=== PATIENT | female | born 1990 | race American Indian/Alaskan Native ===

== ENCOUNTER 2017-11-13 10:44 | Emergency (ER) | payer MEDICAID ==
[2017-11-13] MEDS ORDERED: TYLENOL #3 PO ONE (13:17)
[2017-11-13] MEDS ORDERED: GUAIFENESIN DM SYRUP PO ONE (13:17)
[2017-11-13] MEDS ORDERED: ANTIVERT PO ONE (13:17)
--- NOTE | 2017-11-13 13:20 | Emergency Department Report ---
Chief Complaint: Dizziness Stated Complaint: FLU LIKE SYMPTOMS Time Seen by Provider: 11/13/17 12:56 - HPI History of Present Illness: The patient is a 27-year-old female who presents for evaluation of cough and dizziness. The patient reports 4 days of nonproductive cough, ear pain, myalgias, and severe recurrent dizziness. She states that he feels like the room is spinning. - Exam Vital Signs: Vital Signs 11/13/17 10:55 Temperature 98.5 F Pulse Rate 78 Respiratory 16 Rate Blood Pressure 109/54 O2 Sat by Pulse 100 Oximetry MSE screening note: Focused history and physical exam performed. Due to findings the following was ordered: Labs and imaging and medications are ordered for the patient's symptoms. ED Disposition for MSE Condition: Stable Referrals: PRIMARY CARE, [Primary Care Provider] - 3-5 Days
[2017-11-13] MEDS ORDERED: TESSALON PERLES PO ONE (13:43)
[2017-11-13] MEDS ORDERED: MOTRIN PO ONE (13:43)
[2017-11-13] MEDS ORDERED: ZOFRAN ODT PO ONE (14:21)
[2017-11-13 14:26] LABS: Basophils % (Auto) 0.6 % (0.0-1.8); Eosinophils # (Auto) 0.1 K/mm3 (0.0-0.4); Eosinophils % (Auto) 2.3 % (0.0-4.3); Hematocrit 39.4 % (30.3-42.9); Hemoglobin 13.3 gm/dl (10.1-14.3); Lymphocytes # (Auto) 1.1 K/mm3 (1.2-5.4); Lymphocytes % (Auto) 36.5 % (13.4-35.0); Mean Corpuscular HGB Conc 34 % (30-34); Mean Corpuscular Hemoglobin 30 pg (28-32); Mean Corpuscular Volume 88 fl (79-97); Monocytes # (Auto) 0.4 K/mm3 (0.0-0.8); Platelet Count 182 K/mm3 (140-440); Red Blood Count 4.48 M/mm3 (3.65-5.03); Red Cell Distribution Width 13.1 % (13.2-15.2)
--- NOTE | 2017-11-13 14:27 | Emergency Department Report ---
ED ENT HPI - General Chief complaint: Dizziness Stated complaint: FLU LIKE SYMPTOMS Time Seen by Provider: 11/13/17 12:56 Source: patient Mode of arrival: Ambulatory Limitations: No Limitations - History of Present Illness Initial comments: This is a 27-year-old female nontoxic, well nourished in appearance, no acute signs of distress presents to the ED with c/o of cough, left earache, and dizziness x2 days. Patient stated 4 days ago she developed a nonproductive cough , earache, and myalgias. Patient denies following-up with a provider. Patient denies decreased hearing, hearing loss, mastoid tenderness, or tragus pain. Patient denies any chest pain, shortness of breathe, fever, chills, headache, stiff neck, blurry vision, back pain, numbness or tingling. Patient denies any allergies or PMH. MD complaint: ear pain -: days(s) (4) Location: L ear Severity: mild Severity scale (0 -10): 8 Quality: aching Consistency: constant Improves with: none Worsens with: none Associated Symptoms: tinnitus. denies: fever, cough, gum swelling, toothache, pain with swallowing, sore throat, hearing loss, discharge from ear, rhinorrhea - Related Data Previous Rx's Medication Instructions Recorded Last Taken Type Ibuprofen [Motrin] 600 mg PO Q8H PRN #30 tablet 11/26/14 Unknown Rx Albuterol Sulfate [Proair 90 mcg IH Q4HR PRN #2 aer.pow.ba 11/26/15 Unknown Rx Respiclick] Azithromycin [Zithromax] 250 mg PO QDAY #6 tablet 11/26/15 Unknown Rx Fluticasone [Flonase] 1 spray NS QDAY #1 bottle 11/26/15 Unknown Rx Ibuprofen [Motrin] 600 mg PO Q8H PRN #30 tablet 11/26/15 Unknown Rx Albuterol Sulfate [Proair 90 mcg IH PRN PRN #1 aer.pow.ba 08/04/17 Unknown Rx Respiclick] Azithromycin [Zithromax Z-ANA] 250 mg PO DAILY #6 tablet 08/04/17 Unknown Rx Benzonatate [Tessalon Perles] 100 mg PO Q8HR PRN #15 capsule 08/04/17 Unknown Rx Fluticasone [Flonase] 1 spray NS QDAY #1 bottle 08/04/17 Unknown Rx Amoxicillin/K Clav Tab [Augmentin 1 tab PO Q12HR #20 tab 11/13/17 Unknown Rx 875 mg] Ondansetron [Zofran Odt] 4 mg PO Q8HR PRN #20 tab.rapdis 11/13/17 Unknown Rx Allergies Allergy/AdvReac Type Severity Reaction Status Date / Time No Known Allergies Allergy Unverified 06/13/13 11:37 ED Dental HPI - General Chief complaint: Dizziness Stated complaint: FLU LIKE SYMPTOMS Time Seen by Provider: 11/13/17 12:56 Source: patient Mode of arrival: Ambulatory Limitations: No Limitations - Related Data Previous Rx's Medication Instructions Recorded Last Taken Type Ibuprofen [Motrin] 600 mg PO Q8H PRN #30 tablet 11/26/14 Unknown Rx Albuterol Sulfate [Proair 90 mcg IH Q4HR PRN #2 aer.pow.ba 11/26/15 Unknown Rx Respiclick] Azithromycin [Zithromax] 250 mg PO QDAY #6 tablet 11/26/15 Unknown Rx Fluticasone [Flonase] 1 spray NS QDAY #1 bottle 11/26/15 Unknown Rx Ibuprofen [Motrin] 600 mg PO Q8H PRN #30 tablet 11/26/15 Unknown Rx Albuterol Sulfate [Proair 90 mcg IH PRN PRN #1 aer.pow.ba 08/04/17 Unknown Rx Respiclick] Azithromycin [Zithromax Z-ANA] 250 mg PO DAILY #6 tablet 08/04/17 Unknown Rx Benzonatate [Tessalon Perles] 100 mg PO Q8HR PRN #15 capsule 08/04/17 Unknown Rx Fluticasone [Flonase] 1 spray NS QDAY #1 bottle 08/04/17 Unknown Rx Amoxicillin/K Clav Tab [Augmentin 1 tab PO Q12HR #20 tab 11/13/17 Unknown Rx 875 mg] Ondansetron [Zofran Odt] 4 mg PO Q8HR PRN #20 tab.rapdis 11/13/17 Unknown Rx Allergies Allergy/AdvReac Type Severity Reaction Status Date / Time No Known Allergies Allergy Unverified 06/13/13 11:37 ED Review of Systems ROS: Stated complaint: FLU LIKE SYMPTOMS Other details as noted in HPI Constitutional: denies: chills, fever Eyes: denies: eye pain, eye discharge, vision change ENT: ear pain. denies: throat pain Respiratory: cough. denies: shortness of breath, wheezing Cardiovascular: denies: chest pain, palpitations Endocrine: no symptoms reported Gastrointestinal: denies: abdominal pain, nausea, diarrhea Genitourinary: denies: urgency, dysuria, discharge Musculoskeletal: denies: back pain, joint swelling, arthralgia Skin: denies: rash, lesions Neurological: other (dizziness). denies: headache, weakness, paresthesias Psychiatric: denies: anxiety, depression Hematological/Lymphatic: denies: easy bleeding, easy bruising ED Past Medical Hx - Past Medical History Hx Hypertension: No Hx Congestive Heart Failure: No Hx Diabetes: No Hx Deep Vein Thrombosis: No Hx Renal Disease: No Hx Sickle Cell Disease: No Hx Headaches / Migraines: No Hx Seizures: No Hx Asthma: No Hx COPD: No Hx HIV: No Additional medical history: vaginal delivery x 2 - Social History Smoking Status: Never Smoker - Medications Home Medications: Home Medications Medication Instructions Recorded Confirmed Last Taken Type Ibuprofen [Motrin] 600 mg PO Q8H PRN #30 tablet 11/26/14 11/26/15 Unknown Rx Albuterol Sulfate [Proair 90 mcg IH Q4HR PRN #2 aer.pow.ba 11/26/15 Unknown Rx Respiclick] Azithromycin [Zithromax] 250 mg PO QDAY #6 tablet 11/26/15 Unknown Rx Fluticasone [Flonase] 1 spray NS QDAY #1 bottle 11/26/15 Unknown Rx Ibuprofen [Motrin] 600 mg PO Q8H PRN #30 tablet 11/26/15 Unknown Rx Albuterol Sulfate [Proair 90 mcg IH PRN PRN #1 aer.pow.ba 08/04/17 Unknown Rx Respiclick] Azithromycin [Zithromax Z-ANA] 250 mg PO DAILY #6 tablet 08/04/17 Unknown Rx Benzonatate [Tessalon Perles] 100 mg PO Q8HR PRN #15 capsule 08/04/17 Unknown Rx Fluticasone [Flonase] 1 spray NS QDAY #1 bottle 08/04/17 Unknown Rx Amoxicillin/K Clav Tab [Augmentin 1 tab PO Q12HR #20 tab 11/13/17 Unknown Rx 875 mg] Ondansetron [Zofran Odt] 4 mg PO Q8HR PRN #20 tab.rapdis 11/13/17 Unknown Rx ED Physical Exam - General Limitations: No Limitations General appearance: alert, in no apparent distress - Head Head exam: Present: atraumatic, normocephalic - Eye Eye exam: Present: normal appearance, PERRL, EOMI Pupils: Present: normal accommodation - ENT ENT exam: Present: normal exam, normal orophraynx, mucous membranes moist - Expanded ENT Exam Expanded Ear exam: Present: normal external inspection TM/Canal exam: Erythema: Left TM, Bulging: Left TM Mouth exam: Present: normal external inspection, tongue normal. Absent: drooling, trismus, muffled voice, tongue elevation, laceration Teeth exam: Present: normal inspection Throat exam: Positive: normal inspection, other (Uvula midline. No abscess or swelling noted. ). Negative: tonsillar erythema, tonsillomegaly, tonsillar exudate, R peritonsillar mass, L peritonsillar mass - Neck Neck exam: Present: normal inspection, full ROM. Absent: tenderness, meningismus, lymphadenopathy, thyromegaly - Respiratory Respiratory exam: Present: normal lung sounds bilaterally. Absent: respiratory distress, wheezes, rales, rhonchi, stridor, chest wall tenderness, accessory muscle use, decreased breath sounds, prolonged expiratory - Cardiovascular Cardiovascular Exam: Present: regular rate, normal rhythm, normal heart sounds. Absent: bradycardia, tachycardia, irregular rhythm, systolic murmur, diastolic murmur, rubs, gallop - GI/Abdominal GI/Abdominal exam: Present: soft, normal bowel sounds. Absent: distended, tenderness, guarding, rebound, rigid, diminished bowel sounds - Rectal Rectal exam: Present: deferred - Extremities Exam Extremities exam: Present: normal inspection, full ROM, normal capillary refill. Absent: tenderness, pedal edema, joint swelling, calf tenderness - Back Exam Back exam: Present: normal inspection, full ROM. Absent: tenderness, CVA tenderness (R), CVA tenderness (L), muscle spasm, paraspinal tenderness, vertebral tenderness, rash noted - Neurological Exam Neurological exam: Present: alert, oriented X3, CN II-XII intact, normal gait, reflexes normal - Expanded Neurological Exam Expanded Patient oriented to: Present: person, place, time Cranial nerves: EOM's Intact: Normal, Gag Reflex: Normal, Tongue Deviation: Normal, Nystagmus: Normal, Facial Sensation: Normal, Facial Palsy with Forehead Movement: Normal, Facial Palsy without Forehead Movement: Normal Cerebellar function: Finger to Nose: Normal, Heel to Solitario: Normal, Romberg: Normal Upper motor neuron: Nathaniel Neglect: Normal, Pronator Drift: Normal, Babinski Sign : Normal, Sensory Extinction: Normal Sensory exam: Upper Extremity Light Touch: Normal, Upper Extremity Pin Prick: Normal, Upper Extremity Temperature: Normal, UE 2 Point Discrimination: Normal, Lower Extremity Light Touch: Normal, Lower Extremity Pin Prick: Normal, Lower Extremity Temperature: Normal, LE 2 Point Discrimination: Normal Motor strength exam: RUE: 5, LUE: 5, RLE: 5, LLE: 5 DTR: bicep (R): 2+, bicep (L): 2+, tricep (R): 2+, tricep (L): 2+, knee (R): 2+ , knee (L): 2+, ankle (R): 2+, ankle (L): 2+ Best Eye Response (Holger): (4) open spontaneously Best Motor Response (Holger): (6) obeys commands Best Verbal Response ([place]): (5) oriented Holger Total: 15 - Psychiatric Psychiatric exam: Present: normal affect, normal mood - Skin Skin exam: Present: warm, dry, intact, normal color. Absent: rash ED Course Vital Signs 11/13/17 11/13/17 11/13/17 10:55 14:34 14:55 Temperature 98.5 F Pulse Rate 78 Pulse Rate [ 74 Lying] Pulse Rate [ 73 Sitting] Pulse Rate [ 88 Standing] Respiratory 16 18 Rate Blood Pressure 109/54 Blood Pressure 108/67 [Lying] Blood Pressure 106/66 [Sitting] Blood Pressure 115/70 [Standing] O2 Sat by Pulse 100 Oximetry - Reevaluation(s) Reevaluation #1: 11/13/17 14:37 Patient is speaking in full sentences with no signs of distress noted. - Consultations Consultation #1: 11/13/17 14:37 Patient has been consulted with Dr. Allison about patient history, physical exam, and labs and examined and screened patient and agrees to ED plan of care and discharge plan of care. ED Medical Decision Making - Lab Data Result diagrams: 11/13/17 14:10 11/13/17 14:10 - EKG Data When compared to previous EKG there are: no significant change Interpretation: no acute changes, normal EKG - Medical Decision Making This is a 27-year-old female that presents with upper respiratory infection and otitis media. Patient is stable and was examined by me and Dr. Green. Lab within normal limits. Chest xray has been obtained and dictated by radiologist within normal limits. EKG normal sinus rhytm. Patient is notified of xray results with no questions noted by the patient. Patient stated that dizziness and nausea has resolved after medical treatment in the ED. PO challange has been obtained with 4 apple juice and patient tolerated well with no nausea or vomiting. Patient is discharge with augmentin and zofran. Vital signs are stable prior to discharge. Patient was instructed to Follow-up with a primary care doctor in 3-5 days or if symptoms worsen and continue return to emergency room as soon as possible. At time of discharge, the patient does not seem toxic or ill in appearance. No acute signs of distress noted. Patient agrees to discharge treatment plan of care. No further questions noted by the patient. Critical care attestation.: If time is entered above; I have spent that time in minutes in the direct care of this critically ill patient, excluding procedure time. ED Disposition Clinical Impression: Dizziness Upper respiratory infection Qualifiers: URI type: unspecified URI Qualified Code(s): J06.9 - Acute upper respiratory infection, unspecified Otitis media Qualifiers: Otitis media type: unspecified Laterality: left Qualified Code(s): H66.92 - Otitis media, unspecified, left ear Disposition: DC-01 TO HOME OR SELFCARE Is pt being admited?: No Does the pt Need Aspirin: No Condition: Stable Instructions: Amoxicillin/Clavulanate Potassium (By mouth), Ondansetron ( Injection), Electrolyte Supplement (By mouth), Otitis Media (ED), Upper Respiratory Infection (ED) Additional Instructions: Follow-up with a primary care doctor in 3-5 days or if symptoms worsen and continue return to emergency room as soon as possible. Increase rest and hydration. Prescriptions: Amoxicillin/K Clav Tab [Augmentin 875 mg] 1 tab PO Q12HR #20 tab Ondansetron [Zofran Odt] 4 mg PO Q8HR PRN #20 tab.rapdis PRN Reason: Nausea Referrals: PRIMARY CARE, [Primary Care Provider] - 3-5 Days MARY KOLB MD [Staff Physician] - 3-5 Days [facility] [Outside] - 3-5 Days [facility] [Outside] - 3-5 Days Forms: Work/School Release Form(ED)
[2017-11-13 14:40] LABS: BUN/Creatinine Ratio 13; Blood Urea Nitrogen 8 mg/dL (7-17); Calcium 8.4 mg/dL (8.4-10.2); Hemolysis Index 3
--- NOTE | 2017-11-13 16:26 | XRay Report ---
FINAL REPORT PROCEDURE: XR CHEST ROUTINE 2V TECHNIQUE: PA and lateral chest radiographs were obtained. CPT 78374 HISTORY: cough COMPARISON: No prior studies are available for comparison. FINDINGS: Heart: Normal. Mediastinum/Vessels: Normal. Lungs/Pleural space: Normal. Bony thorax: No acute osseous abnormality. Other: IMPRESSION: Negative examination.
[2017-11-13 16:41] VITALS: BP 91/47
== END 2017-11-13 16:41 | disposition home or self-care (01) ==
LOC: ED 10:44
DX: J06.9 Acute upper respiratory infection, unspecified (principal); H66.92 Otitis media, unspecified, left ear; R42 Dizziness and giddiness
CPT/HCPCS: 36415; 71046; 80048; 84703; 85025; 93005; 93010; Q0162